=== PATIENT | male | born 1950 | race Caucasian/White ===

== ENCOUNTER → 2017-01-17 | Outpatient (CLI) | payer MEDICARE ==
[~2017-01-17] MED LIST: ASPIRIN (CHILDR81 MG PO; CORGARD40 MG PO
[2017-01-17 16:30] LABS: INR - (THERAPEUTIC) 1.31 (0.92-1.07); PROTIME 13.8 SECONDS (9.8-11.4)
== END ==
LOC: LGSMG 16:19
PROVIDERS: Student in an Organized Health Care Education/Training Program
DX: R74.0 Nonspecific elevation of levels of transaminase and lactic acid dehydrogenase [LDH] (principal); R17 Unspecified jaundice

== ENCOUNTER → 2017-01-18 | Outpatient (CLI) | payer MEDICARE, OTHER | END | disposition disaster alternative care site (69) | LOC: GRAD 07:55 | DX: Z13.6 Encounter for screening for cardiovascular disorders (principal); K82.8 Other specified diseases of gallbladder; R74.0 Nonspecific elevation of levels of transaminase and lactic acid dehydrogenase [LDH]; R17 Unspecified jaundice; R16.1 Splenomegaly, not elsewhere classified; R18.8 Other ascites ==

== ENCOUNTER → 2017-01-22 | Day surgery (SDC) | payer MEDICARE, OTHER ==
[~2017-01-22] VITALS: Ht 168.9 cm; Wt 100.5 kg
== END | disposition disaster alternative care site (69) ==
LOC: GPOC 01-21 14:00 → GEND 07:58
PROC: 0DJD8ZZ Inspection of Lower Intestinal Tract, Via Natural or Artificial Opening Endoscopic (ICD-10-PCS; principal; 2017-01-22)
PROC: 0DB68ZX Excision of Stomach, Via Natural or Artificial Opening Endoscopic, Diagnostic (ICD-10-PCS; 2017-01-22)
PROC: 06L34CZ Occlusion of Esophageal Vein with Extraluminal Device, Percutaneous Endoscopic Approach (ICD-10-PCS; 2017-01-22)
DX: Z12.11 Encounter for screening for malignant neoplasm of colon (principal); K64.4 Residual hemorrhoidal skin tags; K74.60 Unspecified cirrhosis of liver; I85.10 Secondary esophageal varices without bleeding; K29.70 Gastritis, unspecified, without bleeding; K29.80 Duodenitis without bleeding; K59.09 Other constipation; E66.9 Obesity, unspecified; Z68.37 Body mass index [BMI] 37.0-37.9, adult; I83.93 Asymptomatic varicose veins of bilateral lower extremities; N40.1 Benign prostatic hyperplasia with lower urinary tract symptoms; N13.8 Other obstructive and reflux uropathy; Z88.5 Allergy status to narcotic agent; Z79.82 Long term (current) use of aspirin; Z79.899 Other long term (current) drug therapy; Z87.891 Personal history of nicotine dependence; Z98.890 Other specified postprocedural states
CPT/HCPCS: 43239; 43244; G0121; J2001; J7030

== ENCOUNTER → 2017-02-07 | Day surgery (SDC) | payer MEDICARE, OTHER ==
[~2017-02-07] VITALS: Ht 167.6 cm; Wt 104.2 kg
== END ==
LOC: GOPP 08:00 → GSDC 08:00 → EDSTATUS 08:00
PROC: 0DB68ZX Excision of Stomach, Via Natural or Artificial Opening Endoscopic, Diagnostic (ICD-10-PCS; principal; 2017-02-07)
DX: K74.60 Unspecified cirrhosis of liver (principal); I85.10 Secondary esophageal varices without bleeding; K22.10 Ulcer of esophagus without bleeding; K31.9 Disease of stomach and duodenum, unspecified; M19.90 Unspecified osteoarthritis, unspecified site; Z87.891 Personal history of nicotine dependence; Z98.890 Other specified postprocedural states; Z88.5 Allergy status to narcotic agent; Z79.82 Long term (current) use of aspirin
CPT/HCPCS: J2001; J7030

== ENCOUNTER → 2017-02-15 | Outpatient (CLI) | payer MEDICARE, OTHER | END | disposition disaster alternative care site (69) | LOC: GRAD 10:56 | DX: K74.60 Unspecified cirrhosis of liver (principal); R77.2 Abnormality of alphafetoprotein; R16.1 Splenomegaly, not elsewhere classified | CPT/HCPCS: A9577 ==

== ENCOUNTER → 2017-02-20 | Outpatient (CLI) | payer MEDICARE, OTHER ==
--- NOTE | ~2017-02-20 | ECHO ---
Transthoracic Echocardiography Report (TTE) Demographics Patient Name VERITO EWING Date of Study 02/20/2017 Patient Number [id number] Visit Number [id number] Date of 1950 Room Number Gender Male Number Age 66 year(s) Referring [facility] Director Center Gurpreet Moctezuma RDCS, Physician RVT Physician Interpreting Marilyn Arguello Composition Weatherboard Applier Physician A Supervising Ordering [facility] MD/MLP Physician MD Nurse Stress Visual Merchandise Manager Conclusions Contractility Score Summary Normal Left Ventricular contractility was noted. Summary The estimated left ventricular ejection fraction is 60-65%. Diastolic assessment reveals Grade I diastolic dysfunction. The left ventricle is normal in size . Obvious dyssynchrony posterior wall and septum Trivial mitral regurgitation by color Doppler. Thickened mitral valve. There is mild aortic regurgitation by color Doppler. The aortic valve is mildly sclerotic. Small posterior pericardial effusion. Pleural effusion present. Procedure Type of Study TTE procedure:2D Echocardiogram. Procedure Date Date: 02/20/2017 Start: 12:27 PM Study Location: Echo Lab Technical Quality: Adequate visualization Indications:Shortness of breath. Appropriate Use Criteria: 9 Patient Status: Routine HR: 68 bpm BP: 133/76 mmHg M-Mode/2D Measurements LV Diastolic Dimension: 4.16 cm LV Systolic Dimension: 2.42 cm LV Septum Diastolic: 0.94 cm LV PW Diastolic: 0.9 cm Cardiac Output: 7.99 l/min LA Dimension: 3.5 cm Post Pericard Effusion: 1 cm LVOT: 2.3 cm LVOT VTI: 28.3 cm RV Base: 3.02 cm LV Stroke volume: 117.52 ml RV Length: 6.76 cm TAPSE: 2.56 cm TDI-S': 17.4 cm/s Doppler Measurements AV Peak Velocity: 1.35 m/s MV Peak E-Wave: 0.88 m/s AV Peak Gradient: 7.29 mmHg MV Peak A-Wave: 1 m/s AV Mean Gradient: 4 mmHg MV E/A Ratio: 0.88 LVOT Peak Velocity: 1.26 m/s MV P1/2t: 109 msec AV P1/2t: 851 msec TR Gradient:18.32 mmHg PV Peak Velocity: 0.99 m/s Estimated RAP:5 mmHg PV Peak Gradient: 3.94 mmHg Estimated RVSP: 23 mmHg Estimated PASP: 23.32 mmHg E' Septal Velocity: 0.06 m/s A' Septal Velocity: 0.09 m/s E' Lateral Velocity: 0.09 m/s A' Lateral Velocity: 0.14 m/s Findings Left Ventricle Diastolic assessment reveals Grade I diastolic dysfunction. The left ventricle is normal in size . Obvious dyssynchrony posterior wall and septum Right Ventricle Normal right ventricular size and function. Left Atrium The left atrium is moderately dilated by LA volume index measurement. Right Atrium Normal right atrial size. Redundant interatrial septum. Mitral Valve Trivial mitral regurgitation by color Doppler. Thickened mitral valve. Aortic Valve There is mild aortic regurgitation by color Doppler. The aortic valve is mildly sclerotic. Tricuspid Valve Trivial tricuspid regurgitation by color Doppler. Pulmonic Valve Normal pulmonic valve structure and function. Pericardial Effusion Small posterior pericardial effusion. Miscellaneous Visualized portions of the aortic root and ascending aorta appear normal in size. Pleural Effusion Pleural effusion present. Contractility Score LV regional wall motion:(0-Non visualized 1-Normal 2-Hypokinesis 3-Akinesis 4-Dyskinesis 5-Aneurysm) Signature dtt: Raul Sanders dtd: 02/20/17 1227 Physician Self Edit
== END | disposition disaster alternative care site (69) ==
LOC: GCAR 12:00
DX: R06.02 Shortness of breath (principal); I51.9 Heart disease, unspecified; I34.0 Nonrheumatic mitral (valve) insufficiency; I35.1 Nonrheumatic aortic (valve) insufficiency; I31.3 Pericardial effusion (noninflammatory)

== ENCOUNTER → 2017-02-20 | Outpatient (CLI) | payer MEDICARE, OTHER | END | disposition disaster alternative care site (69) | LOC: LGSMG 09:26 | DX: R14.0 Abdominal distension (gaseous) (principal) ==

== ENCOUNTER → 2017-02-28 | Outpatient (CLI) | payer MEDICARE, OTHER | END | disposition disaster alternative care site (69) | LOC: LGSMG 11:53 | DX: K74.60 Unspecified cirrhosis of liver (principal) ==